=== PATIENT | female | born 1960 | race Two or more races ===

== ENCOUNTER 2018-08-28 11:55 | Emergency (ER) | payer MEDICAID, OTHER ==
[~2018-08-28] VITALS: Ht 167.6 cm; Wt 86.2 kg
[2018-08-28 12:14] VITALS: BP 159/98
[2018-08-28] MEDS ORDERED: ACETAMINOPHEN 325 MG TAB PO ONE (13:15)
== END 2018-08-28 14:15 | disposition home or self-care (01) ==
LOC: EDSEX 11:55 → EDBD 11:55 → ER 12:05
DX: S16.1XXA Strain of muscle, fascia and tendon at neck level, initial encounter (principal); S29.012A Strain of muscle and tendon of back wall of thorax, initial encounter; V43.62XA Car passenger injured in collision with other type car in traffic accident, initial encounter; Y93.89 Activity, other specified; Y92.488 Other paved roadways as the place of occurrence of the external cause; Y99.8 Other external cause status
CPT/HCPCS: 72040; 72070